=== PATIENT | female | born 1965 | race Caucasian/White ===

== ENCOUNTER → 2016-10-02 | Outpatient (CLI) | payer OTHER ==
[~2016-10-02] MED LIST: CIPRO500 MG PO; COLACE100 MG PO; FERROUS SULFAT325 M2 PO; FLA500 PO; LAC PO; MAGNESIUM OXID400 MG PO; NORCO1 TA2 PO; SYNTHROID0.05 MG PO
== END | disposition home or self-care (01) ==
LOC: RD 09:54
DX: M25.562 Pain in left knee (principal); M25.561 Pain in right knee

== ENCOUNTER 2019-10-03 10:39 | Emergency (ER) | payer OTHER, SELFPAY ==
[~2019-10-03] VITALS: Ht 170.2 cm; Wt 63.0 kg
[2019-10-03 10:46] VITALS: BP 134/84; Ht 170.2 cm; Wt 63.0 kg
== END 2019-10-03 11:20 | disposition home or self-care (01) ==
LOC: ED 10:39
DX: E03.9 Hypothyroidism, unspecified (principal); Z90.49 Acquired absence of other specified parts of digestive tract